=== PATIENT | female | born 1940 | race Caucasian/White ===

== ENCOUNTER 2016-12-27 14:54 | Emergency (ER) | payer MEDICARE ==
[~2016-12-27] VITALS: Ht 162.6 cm; Wt 26.4 kg
[2016-12-27 15:02] VITALS: BP 95/57; PULSE 81; RESP 20; O2SAT 96
--- NOTE | 2016-12-27 15:32 | ED.REPORT ---
HPI-Syncope Date of Service Dec 27, 2016 ED Provider: Morris Armstrong DO The patient is a 76 year old female with history of Parkinson's disease was brought to the emergency department by EMS after she had a syncopal episode prior to arrival. She believes she briefly lost consciousness, fell forward, and hit her face. When medics arrived she did not remember the event but by the time they arrived to the emergency department she was able to remember. Her initial blood pressure for medics was 60/40. She has had similar symptoms multiple times in the past that are believed to be attributed to her Parkinson' s. She is normally able to catch herself before she falls. She denies chest pain , shortness of breath, numbness, weakness, headache, back pain, neck pain, nausea, vomiting or diarrhea. She has had a cough and nasal congestion over the last few days. Nursing Notes Stated Complaint: GLF Chief Complaint: Multiple Trauma/Fall Nursing Notes Reviewed: Yes Allergies: Coded Allergies: No Known Allergies (Unverified , 12/27/16) Scheduled PRN Hydrocodone-Acetaminophen 5-325 mg (Hydrocodone-Acetaminophen 5-325 mg) 1 Each Tablet 1 TABLET PO Q4H PRN PRN For Pain General Time Seen by Provider: 15:33 Chief Complaint Lost consciousness Syncope Description: Same as prior Hx Obtained From: Patient, Spouse, EMS Arrived By: Ambulance Onset Occurred: 1 - 4 hours ago Symptom Duration: 1 - 15 minutes Progression Since Onset: Resolved Severity: Current: Mild Severity: Maximum: Mild Recent Healthcare: No recent doctor visit, No recent hospitalization Similar Sx Previous: Yes Past Medical History Past Medical History Parkinson's disease Rheumatoid arthritis GERD Family History Noncontributory Smoking History Never Smoker Social History Alcohol Use: "Social" Drug Use: Denies drug use Other Social History: Good social support, , Local resident Ambulatory Status Walker Review of Systems Review of Systems Note: +facial pain Constitutional: Denies: Chills, Fever Ears / Nose / Throat: Reports: Nasal congestion Respiratory: Reports: Non-productive cough (mild), Denies: Shortness of breath Cardiovascular: Denies: Chest pain GI: Denies: Diarrhea, Nausea, Vomiting Neurologic: Reports: Change LOC, Syncope, Denies: Focal weakness, Headache, Numbness Complete sys rev & neg: except as marked. Physical Exam Initial Vital Signs Vital Signs (First) Date Time Temp Pulse Resp B/P Pulse Ox O2 Delivery O2 Flow Rate FiO2 12/27/16 15:02 36.8 81 20 95/57 96 Room Air Initial VS: Reviewed Neck: Supple, Non-tender, Full range of motion Abdomen / GI: Soft, Non-tender, No guarding, No rebound, No distention Lymphatic: No lymphadenopathy Upper Extremities: Vascular intact, Neuro intact, No swelling, No tenderness Skin: Warm, Dry, No cyanosis Psychiatric: Mood/affect normal, Behavior normal, Normal thought content General/Constitutional: Awake, Alert, No acute distress, Cooperative Respiratory / Chest: Atraumatic, Breath sounds NL, Breath sounds = bilat, No respiratory distress, No rales, No rhonchi, No wheezing Cardiovascular: Heart rate NL, Regular rhythm, Heart sounds NL, No gallop, No murmurs, No rubs, Cap refill not delayed, Peripheral circulation NL Lower Extremity / Pelvis / MS: Atraumatic, Full range of motion, No swelling, Non-tender, No deformity, Neurologic intact, Vascular intact Neurologic: Oriented X3, Speech NL, No motor deficits, No sensory deficits, CN II - XII intact, Cerebellar NL, Memory NL Head / Eyes: Atraumatic, Normocephalic, PERRL, EOMI ENT: Airway patent, Mucous membranes moist, Pharynx NL Trauma - ENT Specific: Negative: Hemotympanum L, Hemotympanum R, Septal hematoma L, Septal hematoma R Frontal bruising, mild tenderness to nose without any obvious deformity. Interpretation & Diagnostics Lab Results Interpretation Test 12/27/16 14:50 Hold Purple Top Tube Received (Received) Hold Blue Top Tube Received (Received) Hold [place] Top Tube Received (Received) ECG Interpretation ECG Interpretation: Sinus rhythm with a rate of 83 Time: 15:58 Interpreted by: ED physician X-Ray Chest Interpretation Chest Xray Interpretation: IMPRESSION: No acute cardiopulmonary disease. Dictated by: David Lucas M.D. on 12/27/2016 at 17:11 Interpretation / Wet Read by: Interpret - Radiologist X-Ray Interpretation Xray Interpretation: IMPRESSION: Bilateral nasal bone fractures. Dictated by: David Lucas M.D. on 12/27/2016 at 17:11 Study Performed: Nasal Bone Interpretation / Wet Read by: Interpret - Radiologist Xray Interpretation: Radial deformity. X-Ray Ordered: Wrist left Interpretation / Wet Read by: Wet read ED physician CT Head Interpretation IMPRESSION: No acute intracranial abnormality. Moderate atrophy and small vessel microvascular change. Subcutaneous swelling and small hematoma in the left frontal region. Dictated by: Chaz Mcghee M.D. on 12/27/2016 at 17:06 Study: Head CT no contrast Interpretation / Wet Read by: Interpret - Radiologist Procedures Splint Application - Fx Mgt Time: 18:10 Procedure Performed by: Handbag Operator Precise Anatomic Location: left wrist Type of Immobilization: Sugar tong Definitive Fracture Care: Pain control, Splint, Follow up > 4 days Post-Procedure / Complications: Cap refill normal, Post splint vascular nl, Post splint neuro nl, Condition improved, Tolerated procedure well, Patient stable Splint Post-Application Eval Extremity Condition: Cap refill < 2 sec, Distal sensation intact, Distal motor Intact, No compartment syndrome Re-Eval/Medical Decision Med Decision/Clinical Course Patient has a nasal bone fracture and a distal radius deformity the distal radius fracture is splinted. EKG and chest x-ray as well as head CT are unremarkable. No particular high-risk features such as chest pains or shortness of breath, the patient reports that this is sequela of her Parkinson disease. Will be discharged with pain management splint and sling. Told to follow-up with primary care for referrals to orthopedics and ENT as needed. Source of Hx: EMS, Family Re-Evaluation/Progress #1: Time of Eval: 17:39 Re-Evaluation/Progress Note: Rechecked the patient. Discussed findings. She mentions left wrist pain. On examination she has good range of motion, no snuffbox tenderness. Will order x-ray prior to discharge. Re-Evaluation/Progress #2: Time of Eval: 18:08 Re-Evaluation/Progress Note: Discussed wrist x-ray results and plan for discharge. Counseled Regarding: Diagnosis, Lab results, Need for follow-up, When/why to return to ED Discharge & Departure Impression: Primary Impression: Fall Encounter type: initial encounter Qualified Code: W19.XXXA - Unspecified fall, initial encounter Additional Impressions: Near syncope Facial injury Encounter type: initial encounter Qualified Code: S09.93XA - Unspecified injury of face, initial encounter Nasal bone fractures Encounter type: initial encounter Fracture type: closed Qualified Code: S02.2XXA - Fracture of nasal bones, initial encounter for closed fracture Deformity of left radius Disposition: Home Discharge Condition All VS Reviewed: Yes Condition: Stable Additional Instructions: Thank you for entrusting us with your care today. Your head CT and chest x-ray today are reassuring. There is no evidence of an intracranial bleed. Your nose x -ray does show evidence of bilateral nasal bone fractures. You will need to followup with an ENT specialist. We have given you a referral to Dr. Canelo Gannon. Call his office tomorrow to schedule a followup appointment. On your wrist x-ray there is evidence of a small deformity. You will need to followup with an orthopedist for further evaluation. Call Dr. Mckeon tomorrow to schedule an appointment. Wear the splint until you are re-evaluated. You can take Tylenol as needed for your pain. Please return to the emergency department for any new pr concerning symptoms. Referrals: Canelo Gannon MD,Renard Zimmer Attestation Portions of this note were transcribed by Dory Alba. I, Dr. Armstrong personally performed the history, physical exam and medical decision-making; I reviewed and confirmed the accuracy of the information in the transcribed note. Signed by: Goran Saab, 12/27/2016 and 181. Morris Armstrong DO Dec 27, 2016 15:32 Dory Alba Dec 27, 2016 15:39
--- NOTE | 2016-12-27 17:14 | DRSVH ---
PROCEDURE: CT BRAIN WITHOUT CONTRAST ([id number]) INDICATIONS: syncope head injury TECHNIQUE: Noncontrast 4.5 mm thick angled axial sections acquired from the foramen magnum to the vertex, with c oronal reformats. COMPARISON: None. FINDINGS: Image quality: Excellent. CSF spaces: Basal cisterns are patent. No extra-axial fluid collections. The ventricles are symmet abelardo in size and shape. Brain: No intracranial bleeds or masses. There is cerebral volume loss for age, with resultant vent ricular and sulcal prominence. There are periventricular and deep white matter chronic small vessel ischemic changes. There is intracranial internal carotid artery atherosclerosis. Skull and face: Calvarium and visualized facial bones appear intact, without suspicious lesions. The re is some subcutaneous swelling over the left frontal region. Sinuses: Visualized sinuses and mastoids are clear. IMPRESSION: No acute intracranial abnormality. Moderate atrophy and small vessel microvascular change . Subcutaneous swelling and small hematoma in the left frontal region. Dictated by: Chaz Mcghee M.D. on 12/27/2016 at 17:06 Approved by: Chaz Mcghee M.D. on 12/27/2016 at 17:08
--- NOTE | 2016-12-27 17:15 | DRSVH ---
PROCEDURE: X-RAY CHEST, TWO VIEWS ([id number]) INDICATIONS: cough, syncope TECHNIQUE: 2 views of the chest were acquired. COMPARISON: None. FINDINGS: Surgical changes and devices: None. Lungs and pleura: No pleural effusions or pneumothorax. Lungs are clear. Mediastinum: Mediastinal contours are normal. Heart size is normal. Bones and chest wall: Old left rib fractures are noted. Soft tissues appear unremarkable. IMPRESSION: No acute cardiopulmonary disease. Dictated by: David Lucas M.D. on 12/27/2016 at 17:11 Approved by: David Lucas M.D. on 12/27/2016 at 17:11
--- NOTE | 2016-12-27 17:15 | DRSVH ---
PROCEDURE: X-RAY NASAL BONES, MINIMUM THREE VIEWS ([id number]) INDICATIONS: The patient fell onto face. TECHNIQUE: 3 views of the nasal bones acquired. COMPARISON: None. FINDINGS: Bones: Bilateral nasal bone fractures. Nasal septum is midline. Normal nasociliary nerve grooves ar e noted. Soft tissues: No suspicious soft tissue calcifications. IMPRESSION: Bilateral nasal bone fractures. Dictated by: David Lucas M.D. on 12/27/2016 at 17:11 Approved by: David Lucas M.D. on 12/27/2016 at 17:12
[2016-12-27] MEDS ORDERED: HYDR-4003 PO (18:17)
[2016-12-27] MEDS ORDERED: HYDROcodone-APAP 5-325 mg Tablet PO ONE ×2 (18:20→18:55)
--- NOTE | 2016-12-27 18:34 | DRSVH ---
PROCEDURE: X-RAY LEFT WRIST COMPLETE, MINIMUM THREE VIEWS ([id number]) INDICATIONS: FALL ON OUTSTRETCHED HAND TECHNIQUE: 4 views of the wrist were acquired. COMPARISON: None. FINDINGS: Bones: There is thought to be a fracture of the cortex of the radius dorsally at the level of the dash metaphysis and 0 the radiocarpal angulation. There is moderate to severe degenerative change in the radiocarpal joint. There is widening of the scapholunate space. This may be an old finding. There are no old films to compare Scaphoid view: No fracture of the navicular is seen. Soft tissues: No suspicious soft tissue calcifications. IMPRESSION: Probable fracture distal dorsal radius with 0 the radiocarpal angulation currently prese nt. Degenerative change in the radiocarpal joint. Degenerative change in the basal you have the thumb. Abnormally wide scapholunate joint indicating ligamentous damage. Age is indeterminant. Osteoporosis. Dictated by: Chaz Mcghee M.D. on 12/27/2016 at 18:32 Approved by: Chaz Mcghee M.D. on 12/27/2016 at 18:33
== END 2016-12-27 18:56 | disposition home or self-care (01) ==
LOC: SED 14:54 → EDBD 14:54 → SED 18:56
DX: S02.2XXA Fracture of nasal bones, initial encounter for closed fracture (principal); S52.502A Unspecified fracture of the lower end of left radius, initial encounter for closed fracture; W18.30XA Fall on same level, unspecified, initial encounter; W22.8XXA Striking against or struck by other objects, initial encounter; Y92.9 Unspecified place or not applicable; Y93.89 Activity, other specified; Y99.8 Other external cause status; R55 Syncope and collapse; G20 Parkinson's disease; K21.9 Gastro-esophageal reflux disease without esophagitis